=== PATIENT | male | born 1970 | race Caucasian/White ===

== ENCOUNTER 2017-11-17 10:32 | Emergency (ER) | payer SELFPAY ==
[2017-11-17 10:38] VITALS: TEMP 98.1; BMI 29.7
--- NOTE | 2017-11-17 12:36 | PDOC ---
Attending Attestation - HPI HPI: 11/17/17 13:43 The patient is a 47 year old male with a significant PMH of HTN who presents to the emergency department with worsening left knee pain over the past few days. The patient states he has bilateral knee pain over the past few months but notes he had a misstep 4 days ago on his left leg while walking and heard a popping sound in the knee. The patient reports he is now limping when ambulating. The patient notes weakness secondary to his left knee pain. The patient notes he has been taking Motrin with minimal relief. The patient has a bp of 180/123 in triage and states he is not currently seeing a PCP or taking meds for his HTN. The patient denies chest pain, shortness of breath, headache and dizziness. Denies fever, chills, nausea, vomit, diarrhea and constipation. Denies dysuria, frequency, urgency and hematuria. Allergies: NKA Past surgical history: None reported. Social history: No reported alcohol, drug, or cigarette use. <Erlinda Maloney - Last Filed: 11/17/17 13:48> - Resident Resident Name: Troy Madrid - ED Attending Attestation I have performed the following: I have examined & evaluated the patient, The case was reviewed & discussed with the resident, I agree w/resident's findings & plan, Exceptions are as noted - Physicial Exam PE: GENERAL: Awake, alert, and fully oriented, in no acute distress HEAD: No signs of trauma EYES: PERRLA, EOMI, sclera anicteric, conjunctiva clear ENT: Auricles normal inspection, hearing grossly normal, nares patent, oropharynx clear without exudates. Moist mucosa NECK: Normal ROM, supple, no lymphadenopathy, JVD, or masses LUNGS: Breath sounds equal, clear to auscultation bilaterally. No wheezes, and no crackles HEART: Regular rate and rhythm, normal S1 and S2, no murmurs, rubs or gallops ABDOMEN: Soft, nontender, normoactive bowel sounds. No guarding, no rebound. No masses EXTREMITIES: Normal range of motion, no edema. No clubbing or cyanosis. No cords, erythema. R knee exam wnl. L knee with pain elicited on stress of MCL. Isrrael test negative. No ligamentous instability. NEUROLOGICAL: Cranial nerves II through XII grossly intact. Normal speech. Motor and sensation intact. +Antalgic gait on L side. SKIN: Warm, Dry, normal turgor, no rashes or lesions noted. - Medical Decision Making Recommended RICE instructions for L knee pain. No acute abnormalities on XR. Stable for DC home. <Lazara Garcia - Last Filed: 11/18/17 11:03>
--- NOTE | 2017-11-17 12:49 | PDOC ---
History of Present Illness - General Chief Complaint: Blood Pressure Problem Stated Complaint: INJURY Time Seen by Provider: 11/17/17 11:59 - History of Present Illness Initial Comments: 11/17/17 13:29 The patient is a 47 year old male with a history of HTN who presents for evaluation of bilateral knee pain. The patient reports chronic bilateral knee pain over the past few months. He notes that 4 days ago, he missed a step while walking and felt a pop in his left knee with worsening pain over the past 4 days prompting is presentation to the ED for evaluation. He states that he has been taking motrin with pain relief, but the pain returns after a few hours. He was noted to have an elevated bp in triage to 180s/123 and notes that he does not take his bp medications normally. He denies fevers, chills, headache, SOB, chest pain, nausea, vomiting, abdominal pain, or changes with urination or bowel movements. Past History - Past Medical History Allergies/Adverse Reactions: Allergies Allergy/AdvReac Type Severity Reaction Status Date / Time No Known Allergies Allergy Verified 11/17/17 10:36 Home Medications: Ambulatory Orders NK [No Known Home Medication] 11/17/17 COPD: No HTN: Yes - Suicide/Smoking/Psychosocial Hx Smoking History: Never smoked Have you smoked in the past 12 months: No Hx Alcohol Use: Yes Drug/Substance Use Hx: No Substance Use Type: None Review of Systems - Review of Systems Comments:: 11/17/17 13:33 Constitutional: No fevers, chills, fatigue, malaise HEENT: No Rhinorrhea, nasal congestion, visual changes Cardiovascular: No chest pain, syncope, palpitations, lightheadedness Respiratory: No Cough, SOB, Hemoptysis, Gastrointestinal: No Abdominal pain, Nausea, Vomiting, Constipation, Diarrhea, Melena Genitourinary: No Dysuria, Frequency, Urgency, Hesitancy, Hematuria, Flank pain Musculoskeletal: Bilateral knee pain worse in the left. No Myalgia, arthralgia Skin: No rashes, itching, bruising, pallor Neurologic: No Headache, Dizziness, Numbness, Weakness, or Tingling Psychiatric: No Hallucinations. No SI or HI *Physical Exam - Vital Signs Last Vital Signs Temp Pulse Resp BP Pulse Ox 98.1 F 78 16 189/123 98 11/17/17 10:33 11/17/17 10:33 11/17/17 10:33 11/17/17 10:33 11/17/17 10:33 - Physical Exam Comments: 11/17/17 13:34 General Appearance: Nourished. No Apparent Distress HEENT: EOMI, ARCHIE. No Pharyngeal Erythema, Tonsillar Exudate, Tonsillar Erythema Neck: No Cervical Lymphadenopathy Respiratory/Chest: Lungs Clear, Normal Breath Sounds. No Crackles, Rales, Rhonchi, Wheezing Cardiovascular: Regular Rhythm, Regular Rate. No Murmur, Gallops, Rubs Gastrointestinal/Abdominal: Normal Bowel Sounds, Soft. No Guarding, Rebound, Tenderness Musculoskeletal: No instability within the knee joints bilaterally. Pain with stressing of the MCL of the left knee. No CVA Tenderness Extremity: Normal Capillary Refill Integumentary: Normal Color, Dry, Warm Neurologic: durable medical equipment technician II-XII NML intact, Fully Oriented, Alert, Normal Mood/Affect, Normal Response, Motor Strength 5/5. ED Treatment Course - RADIOLOGY Radiology Studies Ordered: Category Date Time Status KNEE 3 POS-LEFT [RAD] Stat Radiology 11/17/17 12:28 Ordered KNEE 3 POS-RIGHT [RAD] Stat Radiology 11/17/17 12:28 Ordered Medical Decision Making - Medical Decision Making 11/17/17 13:36 The patient is a 47 year old male with a history of HTN who presents for evaluation of bilateral knee pain. Given the patient's physical exam, it is likely the patient's symptoms are due to a sprain of the MCL of the left knee. We will obtain plain films to evaluate for any other etiologies as well. We will treat the patient with ibuprofen here in the ED and given that the patient does not take his normal bp medications, we will give him his doses here in the ED. The patient does not have a primary care provider and we will provide a recommendation for follow up. We will continue to monitor and reassess. 11/17/17 15:32 Plain films are unremarkable as read by our radiologist. We are comfortable discharging the patient home at this time with primary care and ortho follow up. The patient's symptoms are likely due to a sprained MCL. His bp has improved after receiving his bp medications. We discussed the plan and the results with the patient who voiced understanding and is agreeable with the plan. *DC/Admit/Observation/Transfer Diagnosis at time of Disposition: Knee MCL sprain Qualifiers: Encounter type: initial encounter Laterality: left Qualified Code(s): S83.412A - Sprain of medial collateral ligament of left knee, initial encounter - Discharge Dispostion Condition at time of disposition: Improved Admit: No - Referrals Referrals: Shai Carrion MD [Staff Physician] - Jaime Foley MD [Staff Physician] - - Patient Instructions Printed Discharge Instructions: DI for Knee Sprain, DI for High Blood Pressure Additional Instructions: Por favor, regrese a la carolyn de emergencias si experimenta problemas o empeoramiento de los sntomas, incluyendo empeoramiento del dolor, dificultad para respirar, dolor en el pecho o dolor de jerry. Sintia radiografas fueron negativas aqu en urgencias. Sintia sntomas probablemente se deban a un esguince de rodilla. Recomendamos que usted compre y rodillera para ayudar a apoyar maciel rodilla y descansarla en los prximos vieira. Usted puede usar ibuprofeno o Tylenol segn sea necesario para ayudar a manejar maciel dolor. Por favor llame para programar gurdeep oh de seguimiento con un proveedor de atencin primaria dentro de 2-3 vieira para discutir la administracin de sintia s ntomas. Tambin hemos proporcionado un nmero para un especialista ortopdico que usted debe llamar para programar el seguimiento de maciel dolor de rodilla. Print Language: GERMAN - Post Discharge Activity
[2017-11-17] MEDS ORDERED: HYDROCHLOROTHIAZIDE 25 MG TABLET (FP) PO ONE (13:23)
[2017-11-17] MEDS ORDERED: LISINOPRIL 10 MG TABLET (FP) PO ONE (13:23)
[2017-11-17] MEDS ORDERED: IBUPROFEN 600 MG TABLET (FP) PO ONE ×2 (13:25→13:51)
[2017-11-17] MEDS ORDERED: LISINOPRIL 5 MG TABLET (FP) ONE (13:51)
[2017-11-17] MEDS ORDERED: HYDROCHLOROTHIAZIDE 25 MG TABLET (FP) ONE (13:51)
[2017-11-17 14:58] VITALS: BP 167/88; PULSE 75
== END 2017-11-17 14:56 | disposition home or self-care (01) ==
LOC: JER 10:32
DX: S83.412A Sprain of medial collateral ligament of left knee, initial encounter (principal); I10 Essential (primary) hypertension; X50.1XXA Overexertion from prolonged static or awkward postures, initial encounter; Y93.89 Activity, other specified; Y92.89 Other specified places as the place of occurrence of the external cause; Y99.8 Other external cause status
CPT/HCPCS: 73562-TC-LT-FY; 73562-TC-RT-FY; 99283-25